=== PATIENT | female | born 1925 | race Caucasian/White ===

== ENCOUNTER 2016-12-11 20:21 | Inpatient (IN) | payer MEDICARE, MEDICAID ==
[~2016-12-11] VITALS: Ht 165.1 cm; Wt 59.0 kg
[~2016-12-11 20:21] MED LIST: ACETAMINOPHEN500 M3 PO; ALBUTEROL-200 PUFFS/ IH; ALBUTEROL2.5 MG/NEB IN; AMLODIPINE10 M1 PO; APHEN325 M1 PO; ARICEPT10 MG PO; ARTIFICIAL TEAR15 M1 OP; ARTIFICIAL TEAR15 M4 OP; ARTIFICIAL1 DROP/0.0 OP; ASPIRIN 81MG TA81 MG PO; ATIVAN GENERIC0.5 MG PO; ATIVAN0.5 MG PO; AZO-CRANBERRY450 MG PO; BISAC-EVAC10 MG PR; BRITE-LIFE ALLE10 MG PO; CIPRO 500MG TA500 MG PO; CRESTOR10 MG PO; DITROPAN5 MG PO; DOCUSATE NA250 MG PO; DONEPEZIL 10MG10 MG PO; DULCOLAX10 MG PR; FLEET 135 ML135 ML RC; FLONASE 50 MCG16 GM; FLUTICASON0.05 MG/A1 NS; FLUTICASONE 50M16 GM; FUROSEMIDE 20MG20 MG PO; FUROSEMIDE 40MG40 MG PO; FUROSEMIDE40 MG PO; GEODON20 M1 PO; GEODON20 MG PO; HCTZ/LISINOPRIL1 TA1 PO; IMDUR 30MG. TAB30 MG PO; IMODIUM A-D2 MG PO; IMODIUM2 MG PO; ISOSORBIDE DINI30 MG PO; Isosorbide Mono30 MG PO; KCL 10% 2020 MEQ/15 PO; KEFLEX 500MG.500 MG PO; KLOR-CON20 MEQ PO; LASIX 40MG. TAB40 MG PO; LEVAQUIN500 MG PO; LISINOPRIL HCTZ1 TAB PO; LISINOPRIL/HCTZ1 TA3 FT; LISINOPRIL/HCTZ1 TA3 PO; LOPRESSOR100 MG PO; LORATADINE 10MG10 M1 PO; LORATADINE10 MG PO; LORAZEPAM0.5 MG PO; LORAZEPAM0.5 MG/TAB PO; LORTAB 5/500 501 TAB PO; MACROBID 100MG100 MG PO; MEDROL 4MG. DOSE4 MG PO; METOPROLOL TAR100 MG PO; MICROTHENE FN501 POW; MIRALAX17 GM/DOSE PO; MIRALAX17 GM/PACK PO; MIRTAZAPINE15 MG PO; MYLANTA 150 ML150 ML PO; MYLANTA 360 ML360 ML PO; OCUVITE LUTEIN1 CA1 PO; OCUVITE1 TA1 PO; OCUVITE1 TAB PO; OMEPRAZOLE20 MG PO; POTASSIUM CHLO20 ME2 PO; PRILOSEC20 M1 PO; PRILOSEC20 MG PO; PROAIR HFA0.09 MG/AC IH; PROMETHAZINE HC25 M1 PO; PROMETHAZINE25 M1 PO; PROMETHAZINE25 MG PR; REMERON15 MG PO; RISPERDAL0.5 MG PO; RISPERIDONE0.25 M1 PO; ROBITUSSIN DM 105 ML PO; ROBITUSSIN DM S10 ML NG; SENNA-LAX8.6 MG PO; SENNA8.6 MG PO; SEPTRA DS 800 M1 TA1 PO; SERTRALINE 100100 MG PO; SERTRALINE 50MG50 MG PO; SYSTANE OP; THERAPEUTIC M1 TAB PO; TRAMADOL 50MG T50 M1 PO; TRAMADOL 50MG T50 MG PO; TYLENOL 8 HOUR650 MG PO; VENTOLIN H0.09 MG/AC IH; VITAMIN D31000 I1 PO; VITAMIN D31000 IU PO
[2016-12-11 20:25] VITALS: BP 129/47
--- NOTE | 2016-12-11 20:45 | Emergency Room Report ---
History of Present Illness Time Seen by 2044 Presenting Problem in Triage Pt arrived:Ambulance Stretcher Presenting Problem:PT SENT FROM [facility] FOR NOT EATING AND FEVER. PER NURSE REPORT PT HAS BEEN ON IV ANTIBIOTICS AND FLUIDS SINCE 12/09/16 FOR UTI. PT WITH HISTORY OF DEMENTIA. Onset of symptoms date/time:/ or onset unknown for:MEDICAL HX UNKNOWN Treatment Prior to Arrival: PT HAS BEEN GETTING IV ANTIBIOTICS AND IV FLUIDS SINCE 12/09/16. PT TRANS- PORTED TO ED BY EMS. ELECTROPLATER AUTOMATIC Provided by:PHYSICIAN Sepsis Risk Assessment: Temp: 101.7 B/P: 129/47 MAP: 74 Pulse: 154 Resp: 18 Recent fever? N Clinical Suspician of Infection? Y Mental Status: 1 - Regular (Normal Baseline) Sepsis Risk:Severe Sepsis Risk Have you (or family members/close friends) recently traveled outside the [place]? N If Yes, where/when: Have you had exposure to infectious disease within the past month? N TB? Other? Specify: Source patient, RN notes reviewed, family, EMS, [facility] records, old records Exam Limitations clinical condition Comment pt sent from [facility] where she has progressive dec loc with dec po intake and was treated with ivf and abx for uti- sent to ed for eval and failure of op rx Cardiac Chest Pain Chest pain indicative of cardiac No Timing/Duration this evening Severity moderate ALLERGIES Coded Allergies: Penicillins (12/11/16) amoxicillin (12/11/16) aspirin (12/11/16) ondansetron (From ZOFRAN ( HYDROCHLORIDE)) (12/11/16) sulfamethoxazole (From BACTRIM) (12/11/16) trimethoprim (From BACTRIM) (12/11/16) Home Medications Reported Medications Acetaminophen (Aphen) 650 MG PO Q4HP MULTIVIT,THER IRON,CA,FA & MIN (Sm Therapeutic M Tablet) 1 EACH PO DAILY Ascorbic Acid/Copper/Lutein/ (Ocuvite Lutein) 1 CAP PO BID ASPIRIN (Aspirin) 81 MG PO DAILY CRANBERRY CONC/C/BACILL COAG (Azo Cranberry Tablet) 450 MG PO BID FLUTICASONE PROPIONATE (Fluticasone 50MCG Nasal [place]) 2 SPRAY NA DAILY Isosorbide Dinitrate 30 MG PO DAILY Loratadine 10 MG PO DAILY Lorazepam (Ativan 0.5MG) 0.5 MG PO TID Metoprolol Tartrate (Metoprolol 100MG) 50 MG PO BID OMEPRAZOLE MAGNESIUM (Prilosec 20MG) 20 MG PO DAILY Polyethylene Glycol 3350 (Miralax) 17 GM PO DAILY POTASSIUM CHL (Potassium Chloride) 20 MEQ PO DAILY Albuterol Sulfate (Proair Hfa) 1 PUFF IH Q4HP PRN BREATHING Risperidone 0.5 MG PO TID SENNOSIDES (Senna-Lax) 1 EACH PO DAILY TRAMADOL HCL (Tramadol) 50 MG PO TID Artificial Tear Soln (Hypotears Eye Drops) 1 DROP OP Q1HP PRN DRY EYES Lorazepam (Lorazepam 0.5MG) 0.5 MG PO Q4HP PRN ANXIETY Imipenem W/Cilastatin Sodium (Primaxin 250 MG Vial) 250 MG IV BID Hydrocortisone (Proctozone-Hc) 1 LATRICIA TP QIDP PRN SKIN Albuterol Sulfate (Proair Hfa) 1 PUFF IH Q6HP PRN BREATHING Guaifenesin (Robitussin Plain Syr 200MG/10ML Udc) 10 ML PO Q4HP PRN COUGH CHOLECALCIFEROL (VITAMIN D3) (Vitamin D3) 1,000 IUNITS PO DAILY Dextrose 5% In Water (Dextrose 5%-Water IV Soln) 100 ML IV Q1H CEFTRIAXONE SODIUM (Ceftriaxone) 1 GM IV DAILY History Medical History General CAD? No Angina: No [place]: No Hypertension? Yes Hyperlipidemia? Yes CHF? No DVT? No PE? No COPD? No Asthma? No Anemia? No GERD? Yes Gastric ulcers? No GI Bleed? No Hernia? Yes Thyroid Problems? No Hypothyroidism? No CVA? No Seizures? No Diabetes? No Renal Insuffiency? No End Stage Renal Disease? No UTI? Yes Stones? No BPH? No GB Disease: Yes Nephritic Syndrome? No Asplenia? No Hepatitis? No Sickle Cell Disease? No Arthritis? Yes Migraines? No Cataracts? Yes Glaucoma? No MRSA? Yes HIV? No TB? No Anxiety? Yes Depression? No Cancer? No More? 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 Respiratory denies cough, shortness of breath, denies wheezing Cardiovascular see HPI, denies chest pain, palpitations Gastrointestinal denies diarrhea, denies vomiting Genitourinary denies: frequency, hematuria. Musculoskeletal denies joint swelling Skin denies rash Psychiatric/Neurological denies headache, denies seizure Physical Exam Vital Signs Vital Signs Date Time Temp Pulse Resp B/P Pulse O2 O2 Flow FiO2 Ox Delivery Rate 12/11 2221 170 16 155/99 87 12/11 2145 95 12/11 2123 141 16 118/63 95 12/11 2024 101.7 154 18 129/47 95 - WBC >12,000 or <4,000 or 10% bands? 2 or more SIRS Criteria Met? B/P:155/99 MAP:74 Creatinine >2.0? UA output<0.5ml/kg/hr for 2 hrs? Platelet count >100,000? Lactate >2.0mmol/1? INR >1.2 or PTT > than 60 sec? Evidence of Organ Dysfunction? Provider documented clinical suspician of infection? Y Sepsis Criteria Count: 2 Sepsis Risk: Severe Sepsis Risk General Appearance lethargic Eye Exam - bilateral eye PERRL, bilateral eye EOMI Ear, Nose, Throat dry mm Neck limited range of motion Respiratory Status No: respiratory distress. Lung Sounds right: rales. Cardiovascular tachycardia, systolic murmur, gallop/S4, irregularly irregular Peripheral Pulses Pulses normal Yes Gastrointestinal soft Extremities no pedal edema Strength 3 Upper Ext (L), 3 Upper Ext (R), 3 Lower Ext (L), 3 Lower Ext (R) Neurologic lethargic, no focal changes Reflexes Reflexes normal No Mental status altered mental status Skin intact Medical Decision Making LABS/Meds/Orders Pt receiving controlled substance in ED? No Results/Orders Laboratory Tests 12/11/162101: Lactic Acid 1.5 12/11/162101: Sodium 154 *H, Potassium 2.8 *L, Chloride 119 H, Carbon Dioxide 26, BUN 41 H, Creatinine 1.7 H, Estimated Creat Clear 20 L, Estimated GFR (MDRD) 28 L, Glucose 172 H, Calcium 7.7 L, Total Bilirubin 0.7, AST 36, ALT 34, Alkaline Phosphatase 59, Creatine Kinase 79, CK-MB (CK-2) Rel Index 0.6, CK and CKMB Interp 0.5, Troponin I 3.14 H, Total Protein 5.8 L, Albumin 2.2 L, Globulin 3.6 H, Albumin/Globulin Ratio 0.6 L, WBC 15.3 H, RBC 4.18 L, Hgb 12.4, Hct 41.5, MCV 99.3 H, RDW 14.4, Plt Count 168, MPV 10.5 H, Gran % 79.9, Gran # 12.2 H, Total Counted 100, Lymphocytes % 16.0, Monocytes % 2.7, Eosinophils % 0.7, Basophils % 0.6, Neutrophils 79 H, Band Neutrophils 8, Lymphocytes (Manual ) 12, Lymphocytes # 2.4, Monocytes # 0.4, Eosinophils # 0.1, Eosinophils # ( Manual) 1, Basophils # 0.1, Platelet Estimate NORMAL, Hypochromasia 3+, Macrocytosis 1+, Rouleaux 1+, PUBS MCHC 29.8 L, MCH 29.6 12/11/162039: Urine Color YELLOW, Urine Appearance CLEAR, Urine pH 5.5, Ur Specific [place] 1.025, Urine Protein 1+ H, Urine Ketones NEGATIVE, Urine Blood NEGATIVE, Urine Nitrate NEGATIVE, Urine Bilirubin NEGATIVE, Urine Urobilinogen 1.0, Ur Leukocyte Esterase NEGATIVE, Urine WBC 5-10, Urine Yeast 4+, Urine Glucose NEGATIVE Current Medication Orders Sig/[place]o Start time Last Medication Dose Route Stop Time Status Admin Metoprolol Tartrate 2.5 MG ONCE ONE 12/11 2199 DC 12/11 IV 12/11 Metoprolol Tartrate 2.5 MG ONCE ONE 12/11 2129 DC 12/11 IV 12/11 Metoprolol Tartrate 0 .STK-MED ONE 12/11 2124 DC IV Sodium Chloride 1,000 ML .Q1H1M 12/11 2099 DC 12/11 IV 12/11 Sodium Chloride 10 ML PRN PRN 12/11 2099 AC IV 12/12 2053 Sodium Chloride 1,000 ML .STK-MED ONE 12/11 2055 DC IV Acetaminophen 650 MG ONCE ONE 12/11 2044 DC 12/11 OR 12/11 Sodium Chloride 10 ML PRN PRN 12/11 2044 AC IV 12/12 2035 Sodium Chloride 10 ML PRN PRN 12/11 2044 AC IV 12/12 2043 Acetaminophen 0 .STK-MED ONE 12/11 2025 DC OR Orders Procedure Date/time Status ELECTROCARDIOGRAM REQUEST 12/11 2219 Active OXYGEN PER NURSE 12/11 2142 Active CHEST-PORTABLE 12/11 2134 Active URINARY CATHETER INSERT 12/11 2129 Active DIFFERENTIAL-WBC 12/11 2101 Complete ELECTROCARDIOGRAM REQUEST 12/11 2043 Active IV SALINE LOCK 12/11 2043 Active CULTURE, BLOOD 12/11 2043 Active URINALYSIS/COMPLETE 12/11 2043 Complete LACTIC ACID 12/11 2043 Complete CBC WITH AUTO DIFF 12/11 2043 Complete CARDIAC ENZYMES 12/11 2043 Complete CHEM 12 PROFILE 12/11 2043 Complete CULTURE, URINE 12/11 2039 Active ELECTROCARDIOGRAM REQUEST 12/11 2035 Active IV SALINE LOCK 12/11 2035 Active CM/EKG CM/EKG 1 Monitor Rhythm Atrial Fibrillation EKG compared w/(date of old), non-spec. ST/Twave chgs, ST elevation CM/EKG 2 EKG non-spec. ST/Twave chgs XRAY/CT/US XRAY/CT/US XRAY chest XR interpretation by reviewed by me Xray Results abnormal (changes rt base) Departure Departure Time of Disposition 2226 Disposition Still a Patient Clinical Impression Primary Impression: HCAP (healthcare-associated pneumonia) Secondary Impressions: Atrial fibrillation Qualifiers: Atrial fibrillation type: unspecified Qualified Code: I48.91 - Unspecified atrial fibrillation Febrile illness, acute Hypokalemia Non-STEMI (non-ST elevated myocardial infarction) Renal insufficiency Condition STABLE Referrals Moy Ferguson (Family) discussed with dr robbins ED Critical Care Critical Care Yes Time spent 75-104 min Vital system(s) involved: Metabolic Failure I was present at bedside for Coordinating pt's care, Interpreting EKGs/Strips , Reviewing lab results, Reviewing old records, Discussing pt condition, For re- examinations, Examining radiographs at 9529
[2016-12-11 20:57] LABS: URINE BLOOD NEGATIVE (NEG)
[2016-12-11 21:00] LABS: URINE BILIRUBIN - DIPSTICK NEGATIVE (NEG)
[2016-12-11] MEDS ORDERED: HYPOTEARS 15 ML15 M1 OP (21:10)
[2016-12-11] MEDS ORDERED: LORAZEPAM0.5 MG/TAB PO (21:13)
[2016-12-11] MEDS ORDERED: PRIMAXIN IV (21:18)
[2016-12-11] MEDS ORDERED: PROCTOCREAM-HC2.51 TP (21:19)
[2016-12-11] MEDS ORDERED: PROAIR HFA0.09 MG/AC IH (21:20)
[2016-12-11] MEDS ORDERED: ROBITUSSIN NIG118 ML PO (21:20)
[2016-12-11] MEDS ORDERED: VITAMIN D1000 IU PO (21:20)
[2016-12-11] MEDS ORDERED: DEXTROSE IV (21:22)
[2016-12-11] MEDS ORDERED: ROCEPHIN 1 GM VI1 GM IV (21:23)
[2016-12-11 21:44] LABS: LYMPH # 2.4 K/mm3 (0.7-4.5)
[2016-12-11 21:46] LABS: HEMOGLOBIN 12.4 g/dL (12.2-16.2)
[2016-12-11 22:13] LABS: NEUTROPHILS 79 % (42-76)
[2016-12-11 23:35] VITALS: BP 111/64
[2016-12-12] VITALS (7 sets, daily range): BP systolic 111–159; BP diastolic 64–99
[2016-12-12] MEDS ORDERED: ALBUTEROL SULF0.5 ML IH (01:08)
[2016-12-12 06:48] LABS: HEMOGLOBIN 12.4 g/dL (12.2-16.2); LYMPH # 2.4 K/mm3 (0.7-4.5); LYMPH % 13.2 % (10-50.0)
--- NOTE | 2016-12-12 08:09 | RADIOLOGY REPORT PS360 ---
CHEST-PORTABLE COMPARISON: Portable upright chest 02/17/2015 HISTORY: Is a breath TECHNIQUE: Portable semiupright chest FINDINGS: The lung tran are well expanded and appear clear of infiltrate. There is mild aortic tortuosity with moderate cardiomegaly with left ventricular prominence however the is no evidence of failure. The costophrenic angles are clear though the left lung base is partially obscured due to the large left ventricle. IMPRESSION: Moderate cardiomegaly, no definite acute chest pathology noted
--- NOTE | 2016-12-12 08:14 | HISTORY AND PHYSICAL REPORT ---
Demographics: Admit date: 12/12/16 Chief complaint: Mental status change, tachycardia PRIMARY DIAGNOSIS: PNEUMONIA- HEALTHCARE ACCQUIRED Allergies: Coded Allergies: Penicillins (12/11/16) amoxicillin (12/11/16) aspirin (12/11/16) ondansetron (From ZOFRAN ( HYDROCHLORIDE)) (12/11/16) sulfamethoxazole (From BACTRIM) (12/11/16) trimethoprim (From BACTRIM) (12/11/16) History of present illness: History of present illness: 89-year-old white female, multiple medical problems with significant senile dementia, long-term resident of local correction, who has been on ceftriaxone and imipenem for urinary tract infection for the last several days at that institution per her regular healthcare provider. She failed to improve on that regimen and began to have increasing heart rates in mental status changes over the past couple of days and was instructed by the doctor to have her transferred to the emergency department. In the emergency department she was found to have rapid atrial fibrillation the 170s, evidence of aspiration pneumonia, leukocytosis, hypernatremia and significant dehydration. His admitted to hospital. In consultation with the ER physician we started vancomycin, clindamycin and IV fluids with dextrose for rehydration given her lack of calorie intake over the past couple of days and her hypernatremia. On exam this morning the patient is slightly more alert according to her son. She is however, unresponsive vis--vis verbal conversation. Her sons are concerned about ongoing nutrition issues but do reaffirm her DNR status and overall desire for primarily palliative care. Past medical history: Family HX Diabetes Yes CAD No Hypertension Yes Hyperlipidemia Yes Cancer No TB No Immunization HX DT/Tetanus Unknown Flu 2012-FSN Pneumonia Unknown Other UNKNOWN FLU SHOT TB Test in last year Yes Result Unknown General CAD? No Angina: No [place]: No Hypertension? Yes Hyperlipidemia? Yes CHF? No DVT? No PE? No COPD? No Asthma? No Anemia? No GERD? Yes Gastric ulcers? No GI Bleed? No Hernia? Yes Thyroid Problems? No Hypothyroidism? No CVA? No Seizures? No Diabetes? No Renal Insuffiency? No UTI? Yes Stones? No BPH? No GB Disease: Yes Nephritic Syndrome? No Asplenia? No Hepatitis? No Sickle Cell Disease? No Arthritis? Yes Migraines? No Cataracts? Yes Glaucoma? No MRSA? Yes HIV? No TB? No Anxiety? Yes Depression? No Cancer? No More? 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) Appendix NIGEL GALLBLADDER LENS IMPLANT L BLADDER SLING Current home meds: Reported Medications Acetaminophen (Aphen) 650 MG PO Q4HP MULTIVIT,THER IRON,CA,FA & MIN (Sm Therapeutic M Tablet) 1 EACH PO DAILY Ascorbic Acid/Copper/Lutein/ (Ocuvite Lutein) 1 CAP PO BID Albuterol Sulfate (Albuterol Sulfate 0.5 Ml) 0.5 ML IH Q4HP PRN FOR SOB OR CONGESTION ASPIRIN (Aspirin) 81 MG PO DAILY CRANBERRY CONC/C/BACILL COAG (Azo Cranberry Tablet) 450 MG PO BID FLUTICASONE PROPIONATE (Fluticasone 50MCG Nasal [place]) 2 SPRAY NA DAILY Isosorbide Dinitrate 30 MG PO DAILY Loratadine 10 MG PO DAILY Lorazepam (Ativan 0.5MG) 0.5 MG PO TID Metoprolol Tartrate (Metoprolol 100MG) 50 MG PO BID OMEPRAZOLE MAGNESIUM (Prilosec 20MG) 20 MG PO DAILY Polyethylene Glycol 3350 (Miralax) 17 GM PO DAILY POTASSIUM CHL (Potassium Chloride) 20 MEQ PO DAILY Risperidone 0.5 MG PO TID SENNOSIDES (Senna-Lax) 1 EACH PO DAILY TRAMADOL HCL (Tramadol) 50 MG PO TID Artificial Tear Soln (Hypotears Eye Drops) 1 DROP OP Q1HP PRN DRY EYES Lorazepam (Lorazepam 0.5MG) 0.5 MG PO Q4HP PRN ANXIETY Imipenem W/Cilastatin Sodium (Primaxin 250 MG Vial) 250 MG IV BID Hydrocortisone (Proctozone-Hc) 1 LATRICIA TP QIDP PRN SKIN Albuterol Sulfate (Proair Hfa) 1 PUFF IH Q6HP PRN BREATHING Guaifenesin (Robitussin Plain Syr 200MG/10ML Udc) 10 ML PO Q4HP PRN COUGH CHOLECALCIFEROL (VITAMIN D3) (Vitamin D3) 1,000 IUNITS PO DAILY Dextrose 5% In Water (Dextrose 5%-Water IV Soln) 100 ML IV Q1H CEFTRIAXONE SODIUM (Ceftriaxone) 1 GM IV DAILY Social Hx: Smoking HX Tobacco No Type N/A Are you/the child exposed to second-hand smoke: No Alcohol Alcohol: No Hx of Drug Use Drug Use? No Patien't marital status is Patient's support system is excellent Review of systems: Constitutional fever, malaise, weakness. Respiratory shortness of breath, SOB with excertion. Cardiovascular see HPI Gastrointestinal/Abdominal No constipated, No diarrhea, difficulty swallowing, nausea, poor appetite, poor fluid intake, No rectal bleeding Genitourinary see HPI. Musculoskeletal No: no symptoms reported. Neurological No: see HPI. Comment: Patient is nonresponsive verbally and review of systems is taken from chart and sons report. Exam: Lab data for last 24 hours: Laboratory Tests 12/12/16 0545: Sodium 156 *H, Potassium 3.1 L, Chloride 122 H, Carbon Dioxide 23, BUN 41 H, Creatinine 1.5 H, Estimated Creat Clear 21 L, Estimated GFR (MDRD) 33 L, Glucose 129 H, Calcium 7.6 L, WBC 18.3 H, RBC 4.17 L, Hgb 12.4, Hct 41.2, MCV 99.0 H, RDW 14.4, Plt Count 149, MPV 10.7 H, Gran % 82.3 H, Gran # 15.1 H, Lymphocytes % 13.2, Monocytes % 2.4, Eosinophils % 1.7, Basophils % 0.3, Lymphocytes # 2.4, Monocytes # 0.4, Eosinophils # 0.3, Basophils # 0.1, PUBS MCHC 30.2 L, MCH 29.8 12/11/162101: Lactic Acid 1.5 12/11/162101: Sodium 154 *H, Potassium 2.8 *L, Chloride 119 H, Carbon Dioxide 26, BUN 41 H, Creatinine 1.7 H, Estimated Creat Clear 20 L, Estimated GFR (MDRD) 28 L, Glucose 172 H, Calcium 7.7 L, Total Bilirubin 0.7, AST 36, ALT 34, Alkaline Phosphatase 59, Creatine Kinase 79, CK-MB (CK-2) Rel Index 0.6, CK and CKMB Interp 0.5, Troponin I 3.14 H, Total Protein 5.8 L, Albumin 2.2 L, Globulin 3.6 H, Albumin/Globulin Ratio 0.6 L, WBC 15.3 H, RBC 4.18 L, Hgb 12.4, Hct 41.5, MCV 99.3 H, RDW 14.4, Plt Count 168, MPV 10.5 H, Gran % 79.9, Gran # 12.2 H, Total Counted 100, Lymphocytes % 16.0, Monocytes % 2.7, Eosinophils % 0.7, Basophils % 0.6, Neutrophils 79 H, Band Neutrophils 8, Lymphocytes (Manual ) 12, Lymphocytes # 2.4, Monocytes # 0.4, Eosinophils # 0.1, Eosinophils # ( Manual) 1, Basophils # 0.1, Platelet Estimate NORMAL, Hypochromasia 3+, Macrocytosis 1+, Rouleaux 1+, PUBS MCHC 29.8 L, MCH 29.6 12/11/162039: Urine Color YELLOW, Urine Appearance CLEAR, Urine pH 5.5, Ur Specific [place] 1.025, Urine Protein 1+ H, Urine Ketones NEGATIVE, Urine Blood NEGATIVE, Urine Nitrate NEGATIVE, Urine Bilirubin NEGATIVE, Urine Urobilinogen 1.0, Ur Leukocyte Esterase NEGATIVE, Urine WBC 5-10, Urine Yeast 4+, Urine Glucose NEGATIVE Microbiology 12/11 2101 BLOOD: Anaerobic Blood Culture - RECD 12/11 2101 BLOOD: Aerobic Blood Culture - RECD 12/11 2101 BLOOD: Anaerobic Blood Culture - RECD 12/11 2101 BLOOD: Aerobic Blood Culture - RECD 12/11 2039 URINE CATH: Urine Culture - RES Admission vital signs: 1ST Vital Signs Result Date Time Pulse Ox 95 12/11 2024 B/P 129/47 12/11 2024 Temp 101.7 12/11 2024 Pulse 154 12/11 2024 Resp 18 12/11 2024 O2 Flow Rate 2 12/11 2123 O2 Delivery OXYGEN 12/11 233 Additional information: Patient is alert but nonverbal. Will not follow commands vis--vis head-nodding or eye blinking. Anterior lung tran are clear except for rhonchi in the LEFT base. Abdomen is soft, heart rate rapid in the 170s. Irregular. Distal pulses are present but thready. Capillary refill is delayed at 4 seconds. Extremities are warm, however. No significant edema or skin breakdown. Oropharynx is dry but otherwise clear. Sclera are without icterus. Plan: Problem List 1. Atrial fibrillation 2. Febrile illness, acute 3. HCAP (healthcare-associated pneumonia) 4. Hyperkalemia 5. Acute renal failure 6. Renal insufficiency 7. Non-STEMI (non-ST elevated myocardial infarction) Plan: Multiple issues in this aged patient with multiple comorbidities. Non-STEMI: Treat medically. One dose of beta ahsan in. Start cautious Lovenox injections. Digoxin for heart rate control and intravenous inotropic support. Atrial fibrillation: Rapid-I will is responsive her febrile illness and overall dehydration. Anticoagulation cautiously with Lovenox, digoxin for rate control. Aspiration pneumonia-correction acquired-vancomycin and clindamycin. Hypernatremia with dehydration. D5 half-normal saline. Continue to respect DNR status. Consider NG tube for nutritional support in the next 24-48 hours. at 0813
--- NOTE | 2016-12-12 10:23 | CONSULT NOTE ---
Pharmacokinetic Consult Date of consult: 12/12/16 Time of consult: 1022 Referring provider: DR. DOMINGUEZ Reason for consult: VANCOMYCIN DOSING Allergies: Coded Allergies: Penicillins (12/11/16) amoxicillin (12/11/16) aspirin (12/11/16) ondansetron (From ZOFRAN ( HYDROCHLORIDE)) (12/11/16) sulfamethoxazole (From BACTRIM) (12/11/16) trimethoprim (From BACTRIM) (12/11/16) Home Medications: Reported Medications Acetaminophen (Aphen) 650 MG PO Q4HP MULTIVIT,THER IRON,CA,FA & MIN (Sm Therapeutic M Tablet) 1 EACH PO DAILY Ascorbic Acid/Copper/Lutein/ (Ocuvite Lutein) 1 CAP PO BID Albuterol Sulfate (Albuterol Sulfate 0.5 Ml) 0.5 ML IH Q4HP PRN FOR SOB OR CONGESTION ASPIRIN (Aspirin) 81 MG PO DAILY CRANBERRY CONC/C/BACILL COAG (Azo Cranberry Tablet) 450 MG PO BID FLUTICASONE PROPIONATE (Fluticasone 50MCG Nasal [place]) 2 SPRAY NA DAILY Isosorbide Dinitrate 30 MG PO DAILY Loratadine 10 MG PO DAILY Lorazepam (Ativan 0.5MG) 0.5 MG PO TID Metoprolol Tartrate (Metoprolol 100MG) 50 MG PO BID OMEPRAZOLE MAGNESIUM (Prilosec 20MG) 20 MG PO DAILY Polyethylene Glycol 3350 (Miralax) 17 GM PO DAILY POTASSIUM CHL (Potassium Chloride) 20 MEQ PO DAILY Risperidone 0.5 MG PO TID SENNOSIDES (Senna-Lax) 1 EACH PO DAILY TRAMADOL HCL (Tramadol) 50 MG PO TID Artificial Tear Soln (Hypotears Eye Drops) 1 DROP OP Q1HP PRN DRY EYES Lorazepam (Lorazepam 0.5MG) 0.5 MG PO Q4HP PRN ANXIETY Imipenem W/Cilastatin Sodium (Primaxin 250 MG Vial) 250 MG IV BID Hydrocortisone (Proctozone-Hc) 1 LATRICIA TP QIDP PRN SKIN Albuterol Sulfate (Proair Hfa) 1 PUFF IH Q6HP PRN BREATHING Guaifenesin (Robitussin Plain Syr 200MG/10ML Udc) 10 ML PO Q4HP PRN COUGH CHOLECALCIFEROL (VITAMIN D3) (Vitamin D3) 1,000 IUNITS PO DAILY Dextrose 5% In Water (Dextrose 5%-Water IV Soln) 100 ML IV Q1H CEFTRIAXONE SODIUM (Ceftriaxone) 1 GM IV DAILY Height (feet): 5 Height (inches): 5.00 Medical History: CAD? No Angina: No [place]: No Hypertension? Yes Hyperlipidemia? Yes CHF? No DVT? No PE? No COPD? No Asthma? No Anemia? No GERD? Yes Gastric ulcers? No GI Bleed? No Hernia? Yes Thyroid Problems? No Hypothyroidism? No CVA? No Seizures? No Diabetes? No Renal Insuffiency? No UTI? Yes Stones? No BPH? No GB Disease: Yes Nephritic Syndrome? No Asplenia? No Hepatitis? No Sickle Cell Disease? No Arthritis? Yes Migraines? No Cataracts? Yes Glaucoma? No MRSA? Yes HIV? No TB? No Anxiety? Yes Depression? No Cancer? No More? Yes Additional hx: DEMENTIA, Labs: Laboratory Tests 12/12/16 0545: Sodium 156 *H, Potassium 3.1 L, Chloride 122 H, Carbon Dioxide 23, BUN 41 H, Creatinine 1.5 H, Estimated Creat Clear 21 L, Estimated GFR (MDRD) 33 L, Glucose 129 H, Calcium 7.6 L, WBC 18.3 H, RBC 4.17 L, Hgb 12.4, Hct 41.2, MCV 99.0 H, RDW 14.4, Plt Count 149, MPV 10.7 H, Gran % 82.3 H, Gran # 15.1 H, Lymphocytes % 13.2, Monocytes % 2.4, Eosinophils % 1.7, Basophils % 0.3, Lymphocytes # 2.4, Monocytes # 0.4, Eosinophils # 0.3, Basophils # 0.1, PUBS MCHC 30.2 L, MCH 29.8 12/11/162101: Lactic Acid 1.5 12/11/162101: Sodium 154 *H, Potassium 2.8 *L, Chloride 119 H, Carbon Dioxide 26, BUN 41 H, Creatinine 1.7 H, Estimated Creat Clear 20 L, Estimated GFR (MDRD) 28 L, Glucose 172 H, Calcium 7.7 L, Total Bilirubin 0.7, AST 36, ALT 34, Alkaline Phosphatase 59, Creatine Kinase 79, CK-MB (CK-2) Rel Index 0.6, CK and CKMB Interp 0.5, Troponin I 3.14 H, Total Protein 5.8 L, Albumin 2.2 L, Globulin 3.6 H, Albumin/Globulin Ratio 0.6 L, WBC 15.3 H, RBC 4.18 L, Hgb 12.4, Hct 41.5, MCV 99.3 H, RDW 14.4, Plt Count 168, MPV 10.5 H, Gran % 79.9, Gran # 12.2 H, Total Counted 100, Lymphocytes % 16.0, Monocytes % 2.7, Eosinophils % 0.7, Basophils % 0.6, Neutrophils 79 H, Band Neutrophils 8, Lymphocytes (Manual ) 12, Lymphocytes # 2.4, Monocytes # 0.4, Eosinophils # 0.1, Eosinophils # ( Manual) 1, Basophils # 0.1, Platelet Estimate NORMAL, Hypochromasia 3+, Macrocytosis 1+, Rouleaux 1+, PUBS MCHC 29.8 L, MCH 29.6 12/11/162039: Urine Color YELLOW, Urine Appearance CLEAR, Urine pH 5.5, Ur Specific [place] 1.025, Urine Protein 1+ H, Urine Ketones NEGATIVE, Urine Blood NEGATIVE, Urine Nitrate NEGATIVE, Urine Bilirubin NEGATIVE, Urine Urobilinogen 1.0, Ur Leukocyte Esterase NEGATIVE, Urine WBC 5-10, Urine Yeast 4+, Urine Glucose NEGATIVE Microbiology 12/11 2101 BLOOD: Anaerobic Blood Culture - RECD 12/11 2101 BLOOD: Aerobic Blood Culture - RECD 12/11 2101 BLOOD: Anaerobic Blood Culture - RECD 12/11 2101 BLOOD: Aerobic Blood Culture - RECD 12/11 2039 URINE CATH: Urine Culture - RES Problem List: 1. Febrile illness, acute 2. HCAP (healthcare-associated pneumonia) Plan: BASED ON PATIENT FACTORS, RECOMMEND VANCOMYCIN 1 GM IV Q36H. WILL OBTAIN VANCOMYCIN TROUGH LEVEL PRIOR TO 3RD DOSE. PHARMACY WILL FOLLOW DAILY AND ADJUST APPROPRIATE. at 1025
--- NOTE | 2016-12-12 11:30 | PHARMACY CLINIC NOTE ---
Patient Demographics Patient Demographics Admission date: 12/11/16 Date: 12/12/16 Time: 1129 Allergies Coded Allergies: Penicillins (12/11/16) amoxicillin (12/11/16) aspirin (12/11/16) ondansetron (From ZOFRAN ( HYDROCHLORIDE)) (12/11/16) sulfamethoxazole (From BACTRIM) (12/11/16) trimethoprim (From BACTRIM) (12/11/16) HEIGHT- FT: 5 IN: 5.00 K.511 VTE General Information Labs: Laboratory Tests 12/12 12/11 0545 2102 Hematology Hgb (12.2 - 16.2 g/dL) 12.4 12.4 Hct (37.0 - 47.0 %) 41.2 41.5 Plt Count (142 - 424 K/mm3) 149 168 Disclaimer The following section includes nursing documentation that has been pulled in for pharmacy review. Patient's VTE score: 3 Patient's VTE Risk: LOW RISK Clinical trial participant? No VTE prophylaxis NQF [id number] VTE prophylaxis ordered? Yes Type of prophylaxis/treatment: FAMILIA Huston at 3739
[2016-12-12] MEDS ORDERED: FEVER REDUCER650 MG PR (11:56)
[2016-12-13] VITALS (7 sets, daily range): BP systolic 115–176; BP diastolic 47–98
[2016-12-13 06:54] LABS: HEMOGLOBIN 11.6 g/dL (12.2-16.2); LYMPH # 1.7 K/mm3 (0.7-4.5); LYMPH % 13.1 % (10-50.0)
--- NOTE | 2016-12-13 08:06 | ACUTE CARE PROGRESS NOTE (QUA) ---
Progress Notes Subjective Date 12/13/16 Time 0804 Note Overnight the patient has improved with better heart rate, but continues to have runs of PVCs and had an 8 beat run of V. tach about an hour ago. She is obtunded but the nurses report that she was conversant earlier this morning and has episodes of more wakefulness. Heart rate is much better controlled in the 70s but irregular. Abdomen is soft, anterior lung tran have good air movement. Electrocardiogram from this morning and labs reviewed. Objective Findings Last VS-Temp:97.9 B/P:150/88 Pulse:50 Resp:22 SaO2:94 OXYGEN Last weight lbs:113 oz:9 K.511 Method:Bed Scales Assessment/Plan Problem List 1. Atrial fibrillation Qualifiers: Atrial fibrillation type: unspecified Qualified Code: I48.91 - Unspecified atrial fibrillation 2. Febrile illness, acute 3. HCAP (healthcare-associated pneumonia) 4. Hyperkalemia 5. Acute renal failure 6. Renal insufficiency 7. Non-STEMI (non-ST elevated myocardial infarction) Patient condition Improving, Guarded Plan: continue current care, continue current therapy, transition digoxin therapy to by mouth. Metoprolol and low-dose for rate control and her non-STEMI treatment. Continue anticoagulation and nitroglycerin paste. Cautiously add nutrition by feeding tube if family wishes. Her sons indicated their concern about her nutrition and their wish to pursue tube feedings yesterday. Hypernatremia remains a concern, currently on half-normal saline replacement. Follow this closely tomorrow. This inpt stay is expected to cross 2 MNs from start of care Yes at 0805
--- NOTE | 2016-12-13 10:42 | RADIOLOGY REPORT PS360 ---
CHEST-PORTABLE COMPARISON: Portable semiupright chest 12/11/2016 HISTORY: Shortness of breath TECHNIQUE: Portable semiupright chest FINDINGS: The lung tran are well expanded. There is minimal blunting of left costophrenic angle and I suspect a small left pleural effusion not definitely appreciated on the previous study of 11 December. There may be some minimal left basilar atelectasis as well. The left upper lung field and midlung field are clear. Again noted is aortic tortuosity with moderate generalized cardio megaly but the pulmonary vascularity is normal. IMPRESSION: Possible new finding of the small left pleural effusion and left basilar atelectasis versus possible minimal developing pneumonic infiltrate and suggest clinical correlation.
--- NOTE | 2016-12-13 15:12 | RADIOLOGY REPORT PS360 ---
CHEST-PORTABLE COMPARISON: Portable semiupright chest 12/13/2016 at 7:16 AM HISTORY: Checking NG tube placement TECHNIQUE: Portal semiupright chest FINDINGS: The NG tube is seen ascending the esophagus however the tip is several back on itself in the lower esophagus just above the esophagogastric junction. Suggest advancing the NG tube opacity 6 cm where it'll most likely uncurl and be in satisfactory position along the greater curvature of the stomach. Again noted is minimal patchy opacity at the left lung base as seen on the film earlier in the day. IMPRESSION: NG tube doubled back on itself in the lower third of the esophagus and suggest repositioning of the NG tube by either advancing as described or withdrawing the tube in starting over.
--- NOTE | 2016-12-13 16:03 | RADIOLOGY REPORT PS360 ---
CHEST-PORTABLE COMPARISON: Portable semiupright chest 12/13/2016 HISTORY: Repositioning of NG tube TECHNIQUE: Portable upright chest FINDINGS: The NG tube is now further down the esophagus but still was double back on itself. It likely is right at the gastroesophageal junction. Suggest pushing the tube down another 5 6-cm of possible and I would suspect that the tube was then finally uncurl and be within the upper portion of the stomach. IMPRESSION: NG tube still double back on self but further down the esophagus, see recommendation above
--- NOTE | 2016-12-13 16:36 | RADIOLOGY REPORT PS360 ---
CHEST-PORTABLE COMPARISON: 2 portable chest films same date HISTORY: Repositioning of NG tube TECHNIQUE: Portable upright chest FINDINGS: The NG tube now appears to be in the upper portion of the stomach although the tip is still doubled back on itself but should probably uncoil eventually. The lung tran are unchanged from the earlier films. IMPRESSION: NG tube now within the proximal portion of the stomach
[2016-12-14] VITALS (8 sets, daily range): BP systolic 143–166; BP diastolic 89–109
[2016-12-14 06:56] LABS: HEMOGLOBIN 10.9 g/dL (12.2-16.2); LYMPH # 1.3 K/mm3 (0.7-4.5); LYMPH % 12.2 % (10-50.0)
--- NOTE | 2016-12-14 07:49 | ACUTE CARE PROGRESS NOTE (QUA) ---
Progress Notes Subjective Date 12/14/16 Time 0747 Note Patient is old or responsive. Through the night her heart rate has been much better controlled with beta ahsan and digoxin. She is now in the low 70s, remains in atrial fibrillation. Lungs are clearer, heart rate was controlled but irregular. Abdomen soft. NG tube infusing well. Objective Findings Last VS-Temp:97.8 B/P:149/94 Pulse:85 Resp:22 SaO2:98 OXYGEN Last weight lbs:118 oz:7 K.722 Method:Bed Scales Assessment/Plan Problem List 1. Atrial fibrillation Qualifiers: Atrial fibrillation type: unspecified Qualified Code: I48.91 - Unspecified atrial fibrillation 2. Febrile illness, acute 3. HCAP (healthcare-associated pneumonia) 4. Hyperkalemia 5. Acute renal failure 6. Renal insufficiency 7. Non-STEMI (non-ST elevated myocardial infarction) Patient condition Improving, family wishes evaluation for PEG tube. Reasonably for nutrition and medication administration. Surgical consult for this today. Atrial fibrillation is now rate controlled. I do not think she is a candidate for oral anticoagulation at this time given her impending PEG procedure but she might be a good candidate for one of the new glycoprotein XA inhibitors. So far cultures are negative, continue current antibiotic therapy as she is empirically improving. Plan: continue current care This inpt stay is expected to cross 2 MNs from start of care Yes at 0748
--- NOTE | 2016-12-14 07:59 | ACUTE CARE PROGRESS NOTE (QUA) ---
Progress Notes Subjective Date 12/14/16 Time 0759 Assessment/Plan Problem List 1. Atrial fibrillation Qualifiers: Atrial fibrillation type: unspecified Qualified Code: I48.91 - Unspecified atrial fibrillation 2. Febrile illness, acute 3. HCAP (healthcare-associated pneumonia) 4. Hyperkalemia 5. Acute renal failure 6. Renal insufficiency 7. Non-STEMI (non-ST elevated myocardial infarction) This inpt stay is expected to cross 2 MNs from start of care Yes Antibiotic Stewardship (2) Current Culture Results Microbiology 12/13 144 SPUTUM: Sputum Culture - RES 12/13 144 SPUTUM: Gram Stain - RES 12/11 2101 BLOOD: Anaerobic Blood Culture - RES 12/11 2101 BLOOD: Aerobic Blood Culture - RES 12/11 2039 URINE CATH: Urine Culture - COMP Infxn that will respond? Yes Right drug,dose,and route? Yes More targeted antbx? No How long atbx needed? 7 at 0750
--- NOTE | 2016-12-14 16:29 | CONSULT NOTE ---
Standard Demographics Patient Demo Date of Consultation: 12/14/16 Referring Provider: Sukhdeep Zapata MD Reason for Consultation: feeding and nutrition problem PRIMARY DIAGNOSIS: PNEUMONIA- HEALTHCARE ACCQUIRED Allergies: Coded Allergies: Penicillins (12/11/16) amoxicillin (12/11/16) aspirin (12/11/16) ondansetron (From ZOFRAN ( HYDROCHLORIDE)) (12/11/16) sulfamethoxazole (From BACTRIM) (12/11/16) trimethoprim (From BACTRIM) (12/11/16) History of Present Illness Chief Complaint: Lethargy, poor nutritional intake History of Present Illness: Patient is an 89-year-old white female correction patient with multiple chronic and acute medical conditions as well as endstage dementia. She was admitted after presenting to the emergency department with possible pneumonia and non-STEMI. She has a long-standing history of poor nutritional intake and recently unable to maintain oral nutrition due to current medical status. She has had a nasogastric Dobbhoff feeding tube placed. Surgery was contacted regarding possible percutaneous endoscopic gastrostomy tube. Past Medical History Reports: CAD, hypertension, dementia. 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) Appendix NIGEL GALLBLADDER LENS IMPLANT L BLADDER SLING Allergies Coded Allergies: Penicillins (12/11/16) amoxicillin (12/11/16) aspirin (12/11/16) ondansetron (From ZOFRAN ( HYDROCHLORIDE)) (12/11/16) sulfamethoxazole (From BACTRIM) (12/11/16) trimethoprim (From BACTRIM) (12/11/16) Medications: Reported Medications Lorazepam (Ativan 0.5MG) 1 MG PO TID Dextromethorphan Hb/Doxylamine (Robitussin Nighttime Cough Dm) 10 ML PO Q4HP PRN COUGH/COLD ACETAMINOPHEN (Acetaminophen) 650 MG MN Q6HP PRN PAIN/FEVER Acetaminophen (Aphen) 650 MG PO Q4HP MULTIVIT,THER IRON,CA,FA & MIN (Sm Therapeutic M Tablet) 1 EACH PO DAILY Ascorbic Acid/Copper/Lutein/ (Ocuvite Lutein) 1 CAP PO BID Albuterol Sulfate (Albuterol Sulfate 0.5 Ml) 0.5 ML IH Q4HP PRN FOR SOB OR CONGESTION ASPIRIN (Aspirin) 81 MG PO DAILY CRANBERRY CONC/C/BACILL COAG (Azo Cranberry Tablet) 450 MG PO BID FLUTICASONE PROPIONATE (Fluticasone 50MCG Nasal [place]) 2 SPRAY NA DAILY Isosorbide Dinitrate 30 MG PO DAILY Loratadine 10 MG PO DAILY Metoprolol Tartrate (Metoprolol 100MG) 50 MG PO BID OMEPRAZOLE MAGNESIUM (Prilosec 20MG) 20 MG PO DAILY Polyethylene Glycol 3350 (Miralax) 17 GM PO DAILY POTASSIUM CHL (Potassium Chloride) 20 MEQ PO DAILY Risperidone 0.5 MG PO TID SENNOSIDES (Senna-Lax) 1 EACH PO DAILY TRAMADOL HCL (Tramadol) 50 MG PO TID Artificial Tear Soln (Hypotears Eye Drops) 1 DROP OP Q1HP PRN DRY EYES Lorazepam (Lorazepam 0.5MG) 0.5 MG PO Q4HP PRN ANXIETY Imipenem W/Cilastatin Sodium (Primaxin 250 MG Vial) 250 MG IV BID Hydrocortisone (Proctozone-Hc) 1 LATRICIA TP QIDP PRN SKIN Albuterol Sulfate (Proair Hfa) 1 PUFF IH Q6HP PRN BREATHING CHOLECALCIFEROL (VITAMIN D3) (Vitamin D3) 1,000 IUNITS PO DAILY Dextrose 5% In Water (Dextrose 5%-Water IV Soln) 100 ML IV Q1H CEFTRIAXONE SODIUM (Ceftriaxone) 1 GM IV DAILY Smoking Hx Tobacco: No Smoker: Unknown if Ever Smoked Type: N/A Packs/day: N/A Are you/the child exposed to second-hand smoke: No Alcohol Alcohol: No Hx of Drug Use Drug Use? No Physical Exam VS/I&O Vital Signs Date Time Temp Pulse Resp B/P Pulse O2 O2 Flow FiO2 Ox Delivery Rate 12/14 1521 2 12/14 1407 2 12/14 1358 2 12/14 1229 97.7 65 20 149/108 97 OXYGEN 2 12/14 1224 2 12/14 1138 2 12/14 1021 2 12/14 0955 2 12/14 0955 98.1 82 22 143/109 97 2 12/14 0855 2 12/14 0855 97 2 12/14 0832 2 12/14 0818 98.1 82 22 143/109 98 OXYGEN 2 12/14 0615 2 12/14 0515 2 12/14 0327 2 12/14 0327 97.8 85 22 149/94 98 OXYGEN 2 12/14 0324 92 ROOM AIR 12/14 0306 2 12/14 0151 2 12/14 0128 2 12/14 0002 2 12/14 0002 97.8 85 22 150/89 98 OXYGEN 2 12/13 2342 2 12/13 2200 2 12/13 1999 98.8 101 22 115/76 98 2 12/13 1936 2 12/13 1928 2 12/13 192 98.8 101 22 146/83 99 OXYGEN 2 12/13 1759 2 12/13 1718 2 I&O 12/14 0700 Intake Total 2692 Output Total 1200 Balance 1492 Intake, IV 2401 Intake, Oral 0 Intake, Tube 201 Feeding Intake, Tube 90 Irrigant Output, Other 0 Output, Stool Output, Urine 1200 Patient 118 lb Weight Exam General appearance lethargic Respiratory rhonchi Cardiovascular abnormal S1 S2 Findings/Data On examination the patient does not respond to questions. She has some coarse breath sounds. She has a positive murmur. Her abdomen is soft with a RIGHT upper quadrant subcostal scar. Plan Plan: At this point patient is receiving nutrition via a nasogastric Dobbhoff tube. Sedation for PEG tube would carry some appreciable risk given her acute medical illness and appreciable hypernatremia. PEG tube placement may be reasonable once her electrolyte derangement is at least partially corrected which may be done with IV fluids and enteric free water replacement. Overall prognosis is exquisitely poor and endoscopically placed gastrostomy tube he carries appreciable morbidity and mortality. at 0839
[2016-12-15] VITALS (10 sets, daily range): BP systolic 140–166; BP diastolic 86–107
[2016-12-15 06:34] LABS: HEMOGLOBIN 10.6 g/dL (12.2-16.2); LYMPH # 1.5 K/mm3 (0.7-4.5); LYMPH % 14.6 % (10-50.0)
--- NOTE | 2016-12-15 08:38 | CONSULT NOTE ---
Pharmacokinetic Consult Date of consult: 12/15/16 Time of consult: 834 Referring provider: DR. DOMINGUEZ Reason for consult: VANCOMYCIN LEVEL AND DOSING INTERVAL CHANGE Allergies: Coded Allergies: Penicillins (12/11/16) amoxicillin (12/11/16) aspirin (12/11/16) ondansetron (From ZOFRAN ( HYDROCHLORIDE)) (12/11/16) sulfamethoxazole (From BACTRIM) (12/11/16) trimethoprim (From BACTRIM) (12/11/16) Home Medications: Reported Medications Lorazepam (Ativan 0.5MG) 1 MG PO TID Dextromethorphan Hb/Doxylamine (Robitussin Nighttime Cough Dm) 10 ML PO Q4HP PRN COUGH/COLD ACETAMINOPHEN (Acetaminophen) 650 MG TX Q6HP PRN PAIN/FEVER Acetaminophen (Aphen) 650 MG PO Q4HP MULTIVIT,THER IRON,CA,FA & MIN (Sm Therapeutic M Tablet) 1 EACH PO DAILY Ascorbic Acid/Copper/Lutein/ (Ocuvite Lutein) 1 CAP PO BID Albuterol Sulfate (Albuterol Sulfate 0.5 Ml) 0.5 ML IH Q4HP PRN FOR SOB OR CONGESTION ASPIRIN (Aspirin) 81 MG PO DAILY CRANBERRY CONC/C/BACILL COAG (Azo Cranberry Tablet) 450 MG PO BID FLUTICASONE PROPIONATE (Fluticasone 50MCG Nasal [place] [address]) 2 SPRAY NA DAILY Isosorbide Dinitrate 30 MG PO DAILY Loratadine 10 MG PO DAILY Metoprolol Tartrate (Metoprolol 100MG) 50 MG PO BID OMEPRAZOLE MAGNESIUM (Prilosec 20MG) 20 MG PO DAILY Polyethylene Glycol 3350 (Miralax) 17 GM PO DAILY POTASSIUM CHL (Potassium Chloride) 20 MEQ PO DAILY Risperidone 0.5 MG PO TID SENNOSIDES (Senna-Lax) 1 EACH PO DAILY TRAMADOL HCL (Tramadol) 50 MG PO TID Artificial Tear Soln (Hypotears Eye Drops) 1 DROP OP Q1HP PRN DRY EYES Lorazepam (Lorazepam 0.5MG) 0.5 MG PO Q4HP PRN ANXIETY Imipenem W/Cilastatin Sodium (Primaxin 250 MG Vial) 250 MG IV BID Hydrocortisone (Proctozone-Hc) 1 LATRICIA TP QIDP PRN SKIN Albuterol Sulfate (Proair Hfa) 1 PUFF IH Q6HP PRN BREATHING CHOLECALCIFEROL (VITAMIN D3) (Vitamin D3) 1,000 IUNITS PO DAILY Dextrose 5% In Water (Dextrose 5%-Water IV Soln) 100 ML IV Q1H CEFTRIAXONE SODIUM (Ceftriaxone) 1 GM IV DAILY Height (feet): 5 Height (inches): 5.00 Medical History: CAD? No Angina: No OR: No Hypertension? Yes Hyperlipidemia? Yes CHF? No DVT? No PE? No COPD? No Asthma? No Anemia? No GERD? Yes Gastric ulcers? No GI Bleed? No Hernia? Yes Thyroid Problems? No Hypothyroidism? No CVA? No Seizures? No Diabetes? No Renal Insuffiency? No UTI? Yes Stones? No BPH? No GB Disease: Yes Nephritic Syndrome? No Asplenia? No Hepatitis? No Sickle Cell Disease? No Arthritis? Yes Migraines? No Cataracts? Yes Glaucoma? No MRSA? Yes HIV? No TB? No Anxiety? Yes Depression? No Cancer? No More? Yes Additional hx: DEMENTIA, Labs: Laboratory Tests 12/15/16 0605: Sodium 148 H, Potassium 3.7, Chloride 118 H, Carbon Dioxide 23, BUN 18, Creatinine 1.0, Estimated Creat Clear 34 L, Estimated GFR (MDRD) 52 L, Glucose 126 H, Calcium 7.6 L, WBC 10.1, RBC 3.50 L, Hgb 10.6 L, Hct 33.4 L, MCV 95.4, RDW 14.4, Plt Count 132 L, MPV 10.9 H, Gran % 79.3, Gran # 8.0 H, Lymphocytes % 14.6, Monocytes % 3.8, Eosinophils % 2.1, Basophils % 0.2, Lymphocytes # 1.5, Monocytes # 0.4, Eosinophils # 0.2, Basophils # 0.0, PUBS MCHC 31.8, MCH 30.4 12/14/162024: Vancomycin Trough 6.7 L Problem List: 1. pnuemonia Chronic Plan: BASED ON PATIENT VANCOMYCIN TROUGH LEVEL, RECOMMEND CHANGING DOSING INTERVAL FROM Q36H TO Q24H. WILL RESTART VANCOMYCIN 1 GM AT 1700 THIS AFTERNOON INSTEAD OF WAITING UNTIL 2300 TONIGHT. PHARMACY WILL FOLLOW DAILY AND ADJUST APPROPRIATE. NURYS WATTS, PHARMD at 0887
--- NOTE | 2016-12-15 14:00 | ACUTE CARE PROGRESS NOTE (QUA) ---
Progress Notes Subjective Date 12/15/16 Time 0945 Note Patient is resting comfortably in bed. No obvious discomfort noted. Heart rate remained controlled throughout the night. Sputum culture shows ESBL + E. Coli. Heart rate is irregular. Pulses 2+, trace BLE edema. Lung sounds clear anteriorly. Abdomen soft, non-tender. Normoactive bowel sounds. Patient/family reports: no complaints Nursing reports: no complaints Objective Findings Last VS-Temp:97.6 B/P:140/90 Pulse:56 Resp:22 SaO2:100 OXYGEN Last weight lbs:123 oz:5 K.934 Method:Bed Scales Reviewed: medications, vital signs, lab results Assessment/Plan Problem List 1. Atrial fibrillation Assessment/Plan: Rate controlled. Qualifiers: Atrial fibrillation type: unspecified Qualified Code: I48.91 - Unspecified atrial fibrillation 2. Febrile illness, acute Assessment/Plan: Fever has resolved. 3. HCAP (healthcare-associated pneumonia) Assessment/Plan: Sputum culture revealed ESBL + E.Coli. D/C Vanc and gent. Start Invanz. 4. Renal insufficiency Assessment/Plan: Improved. BUN 18/1.0 5. Non-STEMI (non-ST elevated myocardial infarction) Assessment/Plan: Continue nitroglycerin paste. Not a candiate for cardiac intervention. 6. Dementia Status: Chronic Assessment/Plan: Plan to discuss patient's condition and risks associated with proceeding with peg tube. 7. Hypernatremia Assessment/Plan: Improved, Na 148 this morning. Patient condition Guarded Plan: continue current care (see above) This inpt stay is expected to cross 2 MNs from start of care Yes Antibiotic Stewardship (2) Infxn that will respond? Yes Right drug,dose,and route? Yes More targeted antbx? No
[2016-12-16 04:00] VITALS: BP 153/75
[2016-12-16 07:45] VITALS: BP 137/64
--- NOTE | 2016-12-16 07:52 | ACUTE CARE PROGRESS NOTE (QUA) ---
Progress Notes Subjective Date 12/16/16 Time 0750 Note Patient remains minimally responsive, heart rate remains well controlled but remains in atrial fibrillation. NG tube is in good position and infusing easily. Anterior lung tran have rhonchi but good air movement. Heart rate irregular. Abdomen soft. Note reviewed from yesterday regarding family consultation. They are not inclined to pursue G-tube feeding at this time but have yet to make a final decision. Objective Findings Last VS-Temp:97.0 B/P:137/64 Pulse:52 Resp:18 SaO2:99 OXYGEN Last weight lbs:130 oz:1 K.995 Method:Bed Scales Assessment/Plan Problem List 1. Atrial fibrillation Qualifiers: Atrial fibrillation type: unspecified Qualified Code: I48.91 - Unspecified atrial fibrillation 2. Febrile illness, acute 3. HCAP (healthcare-associated pneumonia) 4. Renal insufficiency 5. Non-STEMI (non-ST elevated myocardial infarction) 6. Dementia Status: Chronic 7. Hypernatremia Patient condition Stable, care management consultation for possible hospice care if family, as expected, declines G-tube placement. She will be eligible to transfer to long-term care to finish up IV antibiotics but with essentially nothing by mouth status given her significant obtundation. Her overall prognosis is poor. This inpt stay is expected to cross 2 MNs from start of care Yes Antibiotic Stewardship (2) Infxn that will respond? Yes Right drug,dose,and route? Yes More targeted antbx? No at 0752
[2016-12-16 12:00] VITALS: BP 134/65
--- NOTE | 2016-12-16 15:09 | DISCHARGE SUMMARY STANDARD ---
Demographics Admit date: 12/12/16 Discharge date: 12/16/16 History of present illness History of present illness 89-year-old white female, multiple medical problems with significant senile dementia, long-term [facility] local [facility], who has been on ceftriaxone and imipenem for urinary tract infection for the last several days at that institution per her regular healthcare provider. She failed to improve on that regimen and began to have increasing heart rates in mental status changes over the past couple of days and was instructed by the doctor to have her transferred to the emergency department. In the emergency department she was found to have rapid atrial fibrillation the 170s, evidence of aspiration pneumonia, leukocytosis, hypernatremia and significant dehydration. His admitted to hospital. In consultation with the ER physician we started vancomycin, clindamycin and IV fluids with dextrose for rehydration given her lack of calorie intake over the past couple of days and her hypernatremia. On exam this morning the patient is slightly more alert according to her son. She is however, unresponsive vis--vis verbal conversation. Her sons are concerned about ongoing nutrition issues but do reaffirm her DNR status and overall desire for primarily palliative care. Hospital Course Hospital Course: Patient was admitted, rapid ventricular response was controlled with intravenous digoxin, followed by p.o. beta blockers and digoxin given per NG tube started for feeding. Patient was found to have a significant pneumonia and antibiotics were started. However, she failed to improve from a mental status perspective and oral intake perspective. After a long discussion with her family, they were understandably and appropriately not interested in pursuing artificial tube placement vis--vis PEG tube, and indicated their desire for ongoing palliative care [facility] with hospice consultation. She will be transferred back to [facility] stay with hospice consultation, palliative care medicines and no IV therapy or G-tube feedings. Her overall prognosis is poor and her condition is terminal Discharge diagnoses Problem List 1. Atrial fibrillation 2. Febrile illness, acute 3. HCAP (healthcare-associated pneumonia) 4. Renal insufficiency 5. Non-STEMI (non-ST elevated myocardial infarction) 6. Dementia Status Chronic 7. Hypernatremia Medications Medications: Discharge meds are as noted. Follow up Follow up in office in: 2 DAYS with: Nila Mckeon APRN at [phone]
--- NOTE | 2016-12-16 15:09 | DISCHARGE SUMMARY STANDARD ---
Demographics Admit date: 12/12/16 Discharge date: 12/16/16 History of present illness History of present illness 89-year-old white female, multiple medical problems with significant senile dementia, long-term resident of local [facility], who has been on ceftriaxone and imipenem for urinary tract infection for the last several days at that institution per her regular healthcare provider. She failed to improve on that regimen and began to have increasing heart rates in mental status changes over the past couple of days and was instructed by the doctor to have her transferred to the emergency department. In the emergency department she was found to have rapid atrial fibrillation the 170s, evidence of aspiration pneumonia, leukocytosis, hypernatremia and significant dehydration. His admitted to hospital. In consultation with the ER physician we started vancomycin, clindamycin and IV fluids with dextrose for rehydration given her lack of calorie intake over the past couple of days and her hypernatremia. On exam this morning the patient is slightly more alert according to her son. She is however, unresponsive vis--vis verbal conversation. Her sons are concerned about ongoing nutrition issues but do reaffirm her DNR status and overall desire for primarily palliative care. Hospital Course Hospital Course: Patient was admitted, rapid ventricular response was controlled with intravenous digoxin, followed by p.o. beta blockers and digoxin given per NG tube started for feeding. Patient was found to have a significant pneumonia and antibiotics were started. However, she failed to improve from a mental status perspective and oral intake perspective. After a long discussion with her family, they were understandably and appropriately not interested in pursuing artificial tube placement vis--vis PEG tube, and indicated their desire for ongoing palliative care back at her [facility] with hospice consultation. She will be transferred back to [facility] [place] [facility] stay with hospice consultation, palliative care medicines and no IV therapy or G-tube feedings. Her overall prognosis is poor and her condition is terminal Discharge diagnoses Problem List 1. Atrial fibrillation 2. Febrile illness, acute 3. HCAP (healthcare-associated pneumonia) 4. Renal insufficiency 5. Non-STEMI (non-ST elevated myocardial infarction) 6. Dementia Status Chronic 7. Hypernatremia Medications Medications: Discharge meds are as noted. Follow up Follow up in office in: 2 DAYS with: Nila Mckeon APRN at [phone]
[2016-12-16 15:37] VITALS: BP 119/88
[2016-12-16 16:43] VITALS: BP 119/88
== END 2016-12-16 16:40 | disposition hospice, inpatient (51) | DRG 177 ==
LOC: ER 20:21 → 2ND 22:31 → ER 22:31 → 2ND 22:31
PROVIDERS: Emergency Medicine; Internal Medicine Adolescent Medicine
DX: J69.0 Pneumonitis due to inhalation of food and vomit (principal); I21.4 Non-ST elevation (NSTEMI) myocardial infarction; F03.90 Unspecified dementia, unspecified severity, without behavioral disturbance, psychotic disturbance, mood disturbance, and anxiety; N39.0 Urinary tract infection, site not specified; Y95 Nosocomial condition; I10 Essential (primary) hypertension; I48.91 Unspecified atrial fibrillation
CPT/HCPCS: J1335; J3370